=== PATIENT | female | born 1995 | race African-American/Black ===

== ENCOUNTER 2017-02-26 02:58 | Emergency (ER) | payer OTHER ==
[~2017-02-26] VITALS: Ht 144.8 cm; Wt 105.2 kg
[~2017-02-26 02:58] MED LIST: FLONASE 0.05%50 MCG NASAL; HYDROCHLOROTH12.5 M1 PO; NORVASC2.5 MG PO; PHENERGAN 25 MG25 M1 PO; PROAIR HFA8.5 GM IH; TRINATE TABLET1 TAB; VENTOLIN HFA 1818 GM INH; ZPAK PO
[2017-02-26] MEDS ORDERED: LABETALOL HCL100 MG PO (03:19)
[2017-02-26] MEDS ORDERED: PRENATAL PO (03:20)
[2017-02-26] MEDS ORDERED: ASPIR 8181 MG PO (03:20)
[2017-02-26] MEDS ORDERED: PROAIR HFA8.5 GM INH (03:49)
[2017-02-26] MEDS ORDERED: PREDNISONE 20 M20 MG PO (03:49)
[2017-02-26 04:53] VITALS: BP 147/97
== END 2017-02-26 04:55 | disposition home or self-care (01) ==
LOC: ER 02:58
DX: O99.512 Diseases of the respiratory system complicating pregnancy, second trimester (principal); J45.901 Unspecified asthma with (acute) exacerbation; I10 Essential (primary) hypertension; F17.210 Nicotine dependence, cigarettes, uncomplicated; J06.9 Acute upper respiratory infection, unspecified; Z88.1 Allergy status to other antibiotic agents; Z3A.27 27 weeks gestation of pregnancy